=== PATIENT | female | born 1970 | race African-American/Black ===

== ENCOUNTER 2019-08-30 23:17 | Emergency (ER) | payer SELFPAY ==
[~2019-08-30] VITALS: Ht 170.2 cm; Wt 130.0 kg
[2019-08-31 00:51] VITALS: BP 166/103
== END 2019-08-31 01:00 | disposition home or self-care (01) ==
LOC: ER 23:17
DX: M54.5 Low back pain (principal); V49.49XA Driver injured in collision with other motor vehicles in traffic accident, initial encounter; Y93.89 Activity, other specified; Y92.89 Other specified places as the place of occurrence of the external cause; Y99.8 Other external cause status; M25.562 Pain in left knee; F17.200 Nicotine dependence, unspecified, uncomplicated; Z98.890 Other specified postprocedural states
CPT/HCPCS: 99283